=== PATIENT | female | born 1950 | race Caucasian/White ===

== ENCOUNTER 2017-08-19 10:41 | Inpatient (IN) | payer OTHER, BC ==
[~2017-08-19] VITALS: Ht 162.6 cm; Wt 64.3 kg
--- NOTE | ~2017-08-19 | EKG ---
[place] [address] [facility] [place] [address] ELECTROCARDIOGRAM REPORT Name: SEDRICK HAWK Room #: 170-3 ADM IN M.R.#: [id number] Admission: 08/19/17 Attend Phys: Tess Mojica Discharge: Date of : 54 Report #: [id number] THIS REPORT FOR: //name// [facility] ED Test Date: 2017-08-19 Test Time: 11:03:18 Pat Name: SEDRICK HAWK Department: Room: 170 Gender: F Client Technical Specialist: [facility] : [id number] Requested By: Caroline Templeton Order Number: [id number] MD: Chris Ibarra Measurements Intervals [place] Rate: 63 P: 32 TN: 156 QRS: -10 QRSD: 97 T: 35 QT: 405 QTc: 415 Interpretive Statements Sinus rhythm Consider anterior infarct Compared to ECG 05/17/2000 21:38:03 Possible Myocardial infarct finding now present Ventricular premature complex(es) no longer present Poor R-wave progression no longer present Electronically Signed On 08-19-2017 16:42:09 [employer] by Chris Ibarra [email or web address] <ELECTRONICALLY SIGNED> By: Chris Ibarra MD, FACC 08/19/17 1642 1103 1103 Chris Ibarra MD, [facility] /EPI
[2017-08-19 11:26] LABS: URINE BILIRUBIN NEGATIVE (Negative); URINE BLOOD NEGATIVE (Negative); URINE CLARITY CLEAR; URINE COLOR YELLOW; URINE GLUCOSE-RANDOM* NEGATIVE (Negative); URINE KETONES NEGATIVE (Negative); URINE LEUKOCYTES NEGATIVE (Negative); URINE NITRITE NEGATIVE (Negative); URINE PROTEIN (DIPSTICK) NEGATIVE (Negative); URINE UROBILINOGEN 0.2 E.U./dl (0.2-1.0)
[2017-08-19 11:32] LABS: HEMATOCRIT 38.7 % (37.0-47.0); HEMOGLOBIN 12.8 gm/dL (12.0-15.0); MCH 26.6 pg (26.0-34.0); MCHC 33.1 g/dL (28.0-37.0); MCV 80.3 fL (80.0-100.0); PLATELET COUNT 189 thou/uL (150-400); RBC 4.81 mil/uL (4.20-5.00); RDW 14.2 % (10.5-14.5); WBC 6.8 thou/uL (4.0-11.0)
[2017-08-19 11:41] LABS: ANION GAP 10 mmol/L (7-16); BUN 20 mg/dL (7-18); CALCIUM 9.1 mg/dL (8.5-10.1); CHLORIDE 102 mmol/L (98-107); CO2 25 mmol/L (21-32); CREATININE 0.5 mg/dL (0.6-1.0); GLUCOSE 97 mg/dL (74-106); POTASSIUM 4.1 mmol/L (3.5-5.1); SODIUM 137 mmol/L (136-145)
[2017-08-19 11:46] LABS: ALBUMIN 3.8 g/dL (3.4-5.0); DIRECT BILIRUBIN < 0.1 mg/dL (<0.1-0.3); SGOT 55 U/L (15-37); SGPT 68 U/L (30-65); TOTAL BILIRUBIN 0.3 mg/dL (<0.1-1.0); TOTAL PROTEIN 6.2 g/dL (6.4-8.2)
[2017-08-19 11:49] LABS: TROPONIN-I < 0.04 ng/mL (<0.06)
[2017-08-19] MEDS ORDERED: SYMBICORT80 MCG/4.1 INH (12:16)
[2017-08-19] MEDS ORDERED: SYNTHROID137 MC1 PO (12:17)
[2017-08-19] MEDS ORDERED: RESTASIS1 EACH OPHTHALMIC (12:18)
[2017-08-19] MEDS ORDERED: ASPIR 8181 MG PO (12:19)
[2017-08-19] MEDS ORDERED: CRESTOR10 MG PO (12:19)
[2017-08-19 12:24] LABS: ANISOCYTOSIS SLIGHT
[2017-08-19] MEDS ORDERED: ANTIVERT25 MG PO (12:48)
[2017-08-19 15:49] VITALS: BP 130/65
[2017-08-19 16:28] VITALS: BP 130/65
[2017-08-19] MEDS ORDERED: FISH OIL 1,001000 M2 PO (17:37)
[2017-08-19] MEDS ORDERED: SINGULAIR 10 MG10 M1 PO (17:40)
[2017-08-19 19:07] VITALS: BP 115/55
[2017-08-19] MEDS ORDERED: PRILOSEC 20 MG20 MG PO (22:39)
[2017-08-20 05:36] VITALS: BP 132/70
[2017-08-20 08:00] VITALS: BP 113/69
[2017-08-20 16:00] VITALS: BP 114/55
[2017-08-20 19:46] VITALS: BP 100/56
[2017-08-20 20:00] VITALS: BP 116/52
[2017-08-21 05:02] VITALS: BP 120/59
[2017-08-21 09:20] VITALS: BP 127/57
[2017-08-21] MEDS ORDERED: LEVAQUIN 500 M500 M1 PO (10:02)
[2017-08-21] MEDS ORDERED: ANTIVERT25 MG PO (10:03)
[2017-08-21] MEDS ORDERED: OSELB75 PO (10:03)
[2017-08-21] MEDS ORDERED: PREDNISONE 20 M20 MG PO (10:04)
[2017-08-21 10:37] VITALS: BP 127/57
== END 2017-08-21 11:25 | disposition home or self-care (01) | DRG 153 ==
LOC: ER 10:41 → EROBS 13:05 → 4N 13:05
PROVIDERS: Emergency Medicine
DX: J11.1 Influenza due to unidentified influenza virus with other respiratory manifestations (principal); H83.09 Labyrinthitis, unspecified ear; K21.9 Gastro-esophageal reflux disease without esophagitis; E03.9 Hypothyroidism, unspecified; M54.9 Dorsalgia, unspecified; G89.29 Other chronic pain; M19.90 Unspecified osteoarthritis, unspecified site; J45.909 Unspecified asthma, uncomplicated; M54.31 Sciatica, right side; K75.81 Nonalcoholic steatohepatitis (NASH); M51.36 Other intervertebral disc degeneration, lumbar region; Z87.891 Personal history of nicotine dependence; Z79.899 Other long term (current) drug therapy; Z79.82 Long term (current) use of aspirin
CPT/HCPCS: 10790